=== PATIENT | female | born 1990 | race Hispanic/Latino ===

== ENCOUNTER 2016-09-04 13:34 | Emergency (ER) | payer OTHER ==
[2016-09-04 14:02] VITALS: BP 121/77; PULSE 86; RESP 16; TEMP 98.5; O2SAT 100
--- NOTE | 2016-09-04 14:14 | ED PDOC ---
HPI: Abdomen Time Seen by Provider: 09/04/16 14:04 Chief Complaint (Nursing): Abdominal Pain History Per: Patient History/Exam Limitations: no limitations Additional Complaint(s): 26-year-old female, PMHx includes Gastritis and IBS, presents to the emergency department with complaints of abdominal pain. Patient states she has been experiencing lower abdominal pain for the past two days. Pain is intermittent in nature and non-radiating. Patient states she went to an urgent care, where she was referred to the ED for further eval. Patient denies nausea/vomiting, diarrhea, symptoms, back pain, dizziness, or any other associated symptoms. No other complaints at this time. Past Medical History Reviewed: Historical Data, Nursing Documentation, Vital Signs Vital Signs: Last Vital Signs Temp 98.5 F 09/04/16 13:57 Pulse 86 09/04/16 13:57 Resp 16 09/04/16 13:57 BP 121/77 09/04/16 13:57 Pulse Ox 100 09/04/16 14:46 - Family History Family History: States: Unknown Family Hx - Allergies Allergies/Adverse Reactions: Allergies Allergy/AdvReac Type Severity Reaction Status Date / Time No Known Allergies Allergy Verified 09/04/16 13:57 Review of Systems ROS Statement: Except As Marked, All Systems Reviewed And Found Negative Constitutional: Negative for: Fever, Chills Respiratory: Negative for: Cough, Shortness of Breath Gastrointestinal: Positive for: Abdominal Pain. Negative for: Nausea, Vomiting , Diarrhea Genitourinary Female: Negative for: Dysuria, Frequency, Vaginal Discharge, Vaginal Bleeding Musculoskeletal: Negative for: Back Pain Skin: Negative for: Rash Physical Exam - Reviewed Nursing Documentation Reviewed: Yes Vital Signs Reviewed: Yes - Physical Exam Appears: Positive for: Non-toxic, No Acute Distress Head Exam: Positive for: ATRAUMATIC, NORMOCEPHALIC Skin: Positive for: Warm, Dry. Negative for: Rash Eye Exam: Positive for: Normal appearance Neck: Positive for: Painless ROM Cardiovascular/Chest: Positive for: Regular Rate, Rhythm Respiratory: Positive for: Normal Breath Sounds. Negative for: Accessory Muscle Use Gastrointestinal/Abdominal: Positive for: Soft, Tenderness (periumbilical). Negative for: Guarding, Rebound Extremity: Positive for: Normal ROM Neurologic/Psych: Positive for: Alert, Oriented - Laboratory Results Result Diagrams: 09/04/16 15:00 09/04/16 15:00 Interpretation Of Abn Labs: no acute - ECG O2 Sat by Pulse Oximetry: 100 - Progress ED Course And Treament: 1633: Stable. Dr. Cooley to fu on ct. Here with abd pain. Medical Decision Making Medical Decision Making: Plan * CT Abd/Pel * CMP * CBC * IVF * Reassess and Disposition Scribe Attestation: Documented by Jamar Means, acting as a scribe for Laureano Jade MD Provider Scribe Attestation: All medical record entries made by the Scribe were at my direction and personally dictated by me. I have reviewed the chart and agree that the record accurately reflects my personal performance of the history, physical exam, medical decision making, and the department course for this patient. I have also personally directed, reviewed, and agree with the discharge instructions and disposition. Disposition - Clinical Impression Clinical Impression: Abdominal pain - Patient ED Disposition Is Patient to be Admitted: Transfer of Care - Disposition Disposition: Transfer of Care Disposition Time: 16:33 Condition: STABLE Patient Signed Over To: Ayan Cooley
[2016-09-04] MEDS ORDERED: Iohexol 240 (50 ml) ONE (14:59)
[2016-09-04] MEDS: Sodium Chloride 0.9% 1,000 ML IV STA (15:08)
[2016-09-04] MEDS: Iohexol 240 (50 ml) PO ONE (15:10)
[2016-09-04 15:15] LABS: BASO % 0.4 % (0.0-2.0); EOS # 0.2 K/uL (0.0-0.7); EOS % 2.6 % (0.0-4.0); HEMATOCRIT 40.3 % (34.0-47.0); LYMPH # 2.2 K/uL (1.0-4.3); LYMPH % 27.5 % (20.0-40.0); MEAN CORPUSCULAR HEMOGLOBIN 30.6 pg (27.0-31.0); MEAN CORPUSCULAR HGB CONC 33.6 g/dL (33.0-37.0); MEAN PLATELET VOLUME 7.6 fl (7.2-11.7); MONO # 0.4 K/uL (0.0-0.8); MONO % 5.1 % (0.0-10.0); NEUT # 5.2 K/uL (1.8-7.0); NEUT % 64.4 % (50.0-75.0); RED CELL DISTRIBUTION WIDTH 12.9 % (11.5-14.5)
[2016-09-04 15:24] LABS: ALB/GLOB RATIO 1.2 (1.0-2.1); ALKALINE PHOSPHATASE 47 U/L (38-126); ALT/SGPT 10 U/L (9-52); AST/SGOT 28 U/L (14-36); BILIRUBIN,TOTAL 0.9 mg/dl (0.2-1.3); BLOOD UREA NITROGEN 11 mg/dl (7-17); CALCIUM 9.7 mg/dL (8.4-10.2); CARBON DIOXIDE 25 mmol/L (22-30); CHLORIDE 104 mmol/L (98-107); GFR AFRICAN-AMERICAN > 60; GLUCOSE,RANDOM 78 mg/dL (65-105); POTASSIUM 4.3 MMOL/L (3.6-5.0); SODIUM 142 mmol/l (132-148); TOTAL PROTEIN 7.5 G/DL (6.3-8.2)
[2016-09-04] MEDS ORDERED: Sodium Chloride 0.9% 50 ML IV ONE (17:13)
[2016-09-04] MEDS ORDERED: Iohexol 300 100 ML IJ ONE (17:13)
--- NOTE | 2016-09-04 17:55 | CT ---
PROCEDURE: CT Abdomen and Pelvis with oral and IV contrast. HISTORY: abd pain COMPARISON: None available. TECHNIQUE: Contiguous axial images of the abdomen and pelvis. Oral and IV contrast was administered. Coronal and Sagittal reformats generated and reviewed. This CT exam was performed using 1 or more of the falling dose reduction techniques: Automated exposure control, adjustment of the MAA and/or kV according to patient size, and/or use of iterative reconstruction technique Contrast dose: 90 mL Omnipaque 300 Radiation dose: Total exam DLP = 432.14 mGy-cm. FINDINGS: LOWER THORAX: No visible consolidation, pleural effusion, or pneumothorax. LIVER: Unremarkable. GALLBLADDER AND BILE DUCTS: Unremarkable. PANCREAS: Unremarkable. SPLEEN: Unremarkable. ADRENALS: Unremarkable. KIDNEYS AND URETERS: The kidneys enhance symmetrically. No hydronephrosis or obstructing renal calculus. BLADDER: The urinary bladder appears unremarkable. REPRODUCTIVE: Uterus is present. APPENDIX: The presumed appendix appears within normal limits of caliber. No secondary signs of acute appendicitis. BOWEL: The stomach is nondistended. The bowel loops appear within normal limits of caliber without evidence of intestinal obstruction. PERITONEUM: Small pelvic free fluid. No definite free air. LYMPH NODES: No bulky lymphadenopathy identified. VASCULATURE: No aortic aneurysm. BONES: No acute osseous abnormality is detected. OTHER FINDINGS: None. IMPRESSION: Small pelvic free fluid, may be physiologic. Otherwise unremarkable study with findings as above.
--- NOTE | 2016-09-04 18:49 | US ---
HISTORY: right sided pain, patient reports surgical resection of an ovary in 2012 COMPARISON: None available. TECHNIQUE: CT abdomen and pelvis with contrast performed 09/04/16 FINDINGS: UTERUS: Measures 5.4 x 1.9 x 3.3 cm. Anteverted. ENDOMETRIUM: Measures 2 mm in diameter. CERVIX: No cervical abnormality identified. RIGHT OVARY: Measures 3.3 x 1.0 x 2.9 cm. Blood flow is demonstrated. LEFT OVARY: Not visualized, by history surgically resected. FREE FLUID: No significant free fluid noted. OTHER FINDINGS: None. IMPRESSION: The left ovary is not visualized ; correlate with surgical history.
--- NOTE | 2016-09-04 18:52 | ED PDOC ---
- Laboratory Results Result Diagrams: 09/04/16 15:00 09/04/16 15:00 - ECG O2 Sat by Pulse Oximetry: 100 Disposition - Clinical Impression Clinical Impression: Abdominal pain, Ruptured ovarian cyst - POA Present On Arrival: None - Disposition [facility] Disposition: Routine/Home Disposition Time: 18:51 Condition: STABLE Prescriptions: Naproxen [Naprosyn] 500 mg PO Q12H #20 tab Instructions: Ovarian Cyst (ED)
== END 2016-09-04 19:10 | disposition home or self-care (01) ==
LOC: H.ER 13:34
DX: N83.209 Unspecified ovarian cyst, unspecified side (principal)